=== PATIENT | female | born 1975 | race Two or more races ===

== ENCOUNTER 2021-06-23 19:40 | Emergency (ER) | payer OTHER ==
[2021-06-23 19:54] VITALS: BP 139/75; PULSE 73; TEMP 99.1; BMI 22.6
[2021-06-23] MEDS ORDERED: IBUPROFEN 600 MG TABLET (FP) PO ONE ×2 (20:08→20:14)
== END 2021-06-23 21:21 | disposition home or self-care (01) ==
LOC: FER 19:40
DX: S89.91XA Unspecified injury of right lower leg, initial encounter (principal); V03.10XA Pedestrian on foot injured in collision with car, pick-up truck or van in traffic accident, initial encounter
CPT/HCPCS: 73564-TC-RT-FY; 99283-25